=== PATIENT | male | born 1975 | race Caucasian/White ===

== ENCOUNTER 2019-08-30 13:14 | Observation (INO) ==
[2019-08-30] MEDS ORDERED: Famotidine 20 MG/2 ML VIAL IVP ONE (13:39)
[2019-08-30] MEDS ORDERED: 0.9 % Sodium Chloride 1,000 ML IVC ONE ×2 (13:39→17:38)
[2019-08-30] MEDS ORDERED: EPINEPHrine 1 MG/ML VIAL IM ONE ×2 (13:39→17:30)
[2019-08-30] MEDS ORDERED: methylPREDNISolone 125 MG/2 ML VIAL IVP ONE (13:39)
[2019-08-30] MEDS ORDERED: EPINEPHrine 1 MG/ML VIAL ONE (17:25)
[2019-08-30 17:35] LABS: Basophils % 0.2 %; Eosinophils % 0.1 %; Hemoglobin 20.3 g/dL (12.9-16.9); Immature Granulocytes % 0.6 % (0-4); Lymphocytes # 0.8 K/mcL (0.6-4.6); Lymphocytes % 4.4 %; Mean Corpuscular HGB Conc 34.3 g/dL (31.6-35.5); Mean Corpuscular Hemoglobin 32.1 pg (28.0-33.3); Mean Corpuscular Volume 93.5 fL (83.0-100.0); Mean Platelet Volume 10.7 fL (9.4-12.4); Monocytes # 1.5 K/mcL (0.0-1.3); Monocytes % 8.2 %; Neutrophils # 16.2 K/mcL (1.6-8.9); Platelet Count 368 K/mcL (140-400); Red Blood Count 6.33 M/mcL (4.19-5.50); Segmented Neutrophils % 86.5 %; White Blood Count 18.7 K/mcL (4.3-11.1)
[2019-08-30 17:36] LABS: Hematocrit 59.2 % (37.5-50.1)
[2019-08-30 17:45] LABS: BUN/Creatinine Ratio 12 (6-26); Blood Urea Nitrogen 14 mg/dL (6-20); Calcium 9.7 mg/dL (8.6-10.3); Carbon Dioxide 25 mEq/L (23-29); Chloride 95 mEq/L (98-107); Glucose 158 mg/dL (70-105); Osmolality,Calculated 280 (280-300); Potassium 4.4 mEq/L (3.5-5.1); Sodium 133 mEq/L (136-145); eGFR For African Americans > 60 (> 60); eGFR For Non-African Americans > 60 (> 60)
[2019-08-30] MEDS ORDERED: Thiamine (B-1) 100 MG, Folic Acid 1 MG, MVI, adult with vitamin K 10 ML in 0.9 % Sodi... IVPB SCH (18:00)
[2019-08-30] MEDS ORDERED: *HR* HYDROcodone/Acet 5/325 mg TABLET PO PRN (18:09)
[2019-08-30] MEDS ORDERED: Mag Hydrox/Al Hydrox/Simeth 30 ML UDC PO PRN (18:09)
[2019-08-30] MEDS ORDERED: Naloxone 0.4 MG/ML INJ IVP PRN (18:09)
[2019-08-30] MEDS ORDERED: MOM Conc 10 ML UD.LIQ PO PRN (18:09)
[2019-08-30] MEDS ORDERED: Ondansetron ODT 4 MG TAB.RAPDIS SL PRN (18:09)
[2019-08-30] MEDS ORDERED: Acetaminophen 325 MG TABLET PO PRN (18:09)
[2019-08-30] MEDS ORDERED: hydrOXYzine pamoate 25 MG CAPSULE PO PRN (18:14)
[2019-08-30] MEDS ORDERED: *HR* LORazepam 2 MG/ML VIAL IVP PRN ×3 (18:15)
[2019-08-30] MEDS ORDERED: Nicotine 21 MG PATCH.TD24 TD PRN (19:24)
[2019-08-30] MEDS: 0.9 % Sodium Chloride 1,000 ML IVC SCH (21:30)
[2019-08-31] MEDS: MethylPREDNISolone 40 MG/ML VIAL IVP SCH ×2 (00:21→06:05)
[2019-08-31] MEDS ORDERED: Famotidine 20 MG/2 ML VIAL IVP SCH (06:00)
[2019-08-31 06:43] VITALS: BP 108/66
[2019-08-31 06:53] LABS: Hematocrit 42.6 % (37.5-50.1); Mean Corpuscular HGB Conc 34.7 g/dL (31.6-35.5); Mean Corpuscular Hemoglobin 32.5 pg (28.0-33.3); Mean Corpuscular Volume 93.4 fL (83.0-100.0); Mean Platelet Volume 10.3 fL (9.4-12.4); Platelet Count 206 K/mcL (140-400); Red Blood Count 4.56 M/mcL (4.19-5.50); Red Cell Distribution Width 12.8 % (11.5-14.5)
[2019-08-31 06:54] LABS: Hemoglobin 14.8 g/dL (12.9-16.9)
[2019-08-31 07:15] LABS: BUN/Creatinine Ratio 11 (6-26); Blood Urea Nitrogen 10 mg/dL (6-20); Calcium 7.8 mg/dL (8.6-10.3); Carbon Dioxide 26 mEq/L (23-29); Chloride 103 mEq/L (98-107); Glucose 180 mg/dL (70-105); Magnesium 1.8 mg/dL (1.6-2.6); Osmolality,Calculated 282 (280-300); Potassium 3.9 mEq/L (3.5-5.1); Sodium 134 mEq/L (136-145); eGFR For African Americans > 60 (> 60); eGFR For Non-African Americans > 60 (> 60)
[2019-08-31] MEDS: 0.9 % Sodium Chloride 1,000 ML IVC SCH (07:20)
[2019-09-02] MEDS ORDERED: Folic Acid 1 MG TABLET PO SCH (09:00)
[2019-09-02] MEDS ORDERED: Thiamine (B-1) 100 MG TABLET PO SCH (09:00)
[2019-09-02] MEDS ORDERED: Vitamin B Complex/Vit C/Vit E 1 EACH TABLET PO SCH (09:00)
== END 2019-08-31 11:21 | disposition home or self-care (01) ==
LOC: EMEROOARM 13:14 → 3BNU 13:14 → SUATTDRO 18:40 → 3BNU 19:39
PROVIDERS: ADMIT Internal Medicine; ATTEND Internal Medicine